=== PATIENT | male | born 1965 | race Asian ===

== ENCOUNTER 2021-05-16 13:48 | Emergency (ER) | payer OTHER, SELFPAY ==
[2021-05-16 14:00] VITALS: BP 119/76; PULSE 77; RESP 18; TEMP 36.7; O2SAT 98
--- NOTE | 2021-05-16 14:48 | ED.GENADULT ---
HPI - General Adult General Chief complaint: Headache Stated complaint: Headache,Nose Pain Source: patient Mode of arrival: ambulatory Limitations: no limitations History of Present Illness HPI narrative: Patient is a 55 y/o CM who presents to the via pov for an evaluation of a nose injury that occurred 6 weeks ago. He states his 50 lbs dog jumped up as he was bending over to pet him and his dog's head struck his nose causing pain, swelling, and generalized headache. His symptoms are improving although he is concerned with left sided nasal congestion that has not improved. He has a hx of a deviated septum and believe this may be the problem prompting today's visit. Ibuprofen provides some relief. Nothing worsens sx. Current pain level is 310 Related Data Home Medications Medication Instructions Recorded Confirmed fexofenadine 180 mg tablet 180 mg PO DAILY 07/17/19 06/05/20 fluticasone propionate 50 1 spray NASAL DAILY 07/17/19 06/05/20 mcg/actuation nasal spray,suspension Claritin 05/16/21 Allergies Allergy/AdvReac Type Severity Reaction Status Date / Time egg Allergy Mild Unknown Verified 06/05/20 09:33 CATS Allergy Mild Unknown Uncoded 06/05/20 09:33 Honey Bee Allergy Mild Unknown Uncoded 06/05/20 09:33 Grass Allergy Unknown RHINITIS, Uncoded 06/05/20 09:33 ITCHING flu shot Allergy Anaphylaxis Uncoded 05/16/21 14:33 Review of Systems Review of Systems: Pertinent negatives: fever, chills, sweats, change in appetite, poor p.o. intake, severe persistent headaches, dizziness, lymphadenopathy, epistaxis, bruising of eyes, vision changes, ear problems, erythema, weakness, syncope, vertigo, LOC, seizure activity, memory loss, difficulty with coordination/gait/equilibrium, paresthesias, abdominal pain, nausea, vomiting, diarrhea, constipation, shortness of breath, cough, chest pain, and heart palpitations/murmurs. [facility] Past Medical History Medical History Acute non-recurrent sinusitis (~06/03/17) Allergic rhinitis Bronchitis (~10/06/11) & 1994 Chronic neck pain (~04/10/19) Hyperlipidemia (~04/10/19) Internal hemorrhoid (~03/02/16) Lumbar strain (~06/14/00) Pain and numbness of left upper extremity (~04/24/19) physical therapy completed-[facility] Pre-diabetes (~04/10/19) Seasonal allergies (~04/10/19) Skin lesions (~04/10/19) 05/10/13-right upper arm from tick bite Strain of right elbow (~04/21/04) w/ loss of extension Tick bite (~05/10/13) Whiplash injury (~1999) Surgical History Surgical History History of oral surgery Hx of colonoscopy (~03/02/16) Dr. Munguia Family History Family History Grandparent Diabetes mellitus Social History Social History Smoking status: Current some day smoker Second hand tobacco smoke exposure: Yes Alcohol intake: current Drinks per week: 4 Substance use: never Substance use type: does not use Gender identity (if verbalized by the patient): Male Sexual Orientation (if Verbalized by the Patient): Straight or Heterosexual Spiritual care concerns: No Agree to blood products: Yes Comments I have reviewed and agree with the patient's past medical, surgical, social, and family hx as documented by the RN. There is no relevant family history pertinent to the presenting complaint. Exam Narrative: GENERAL: Well-appearing, well-nourished, and in no acute distress. HEAD: Normocephalic, atraumatic. No sinus tenderness or facial swelling appreciated. No evidence of ear bleeding or drainage from ears. No evidence of foreign bodies. No signs of basilar skull fracture: no hemotympanum, de guzman's sign, or raccoon's eyes. EYES: PERRLA and EOMI. No evidence of erythema, swelling, or drainage. ENT: Bilateral external ears
== END 2021-05-16 15:06 | disposition home or self-care (01) ==
PROVIDERS: Emergency Provider Nurse Practitioner Family; PCP Family Medicine
DX: R09.81 Nasal congestion (principal); S09.92XA Unspecified injury of nose, initial encounter; W54.1XXA Struck by dog, initial encounter; E78.5 Hyperlipidemia, unspecified; R73.03 Prediabetes; F17.200 Nicotine dependence, unspecified, uncomplicated
CPT/HCPCS: 99212; G0463

== ENCOUNTER 2021-08-08 10:00 | Emergency (ER) | payer OTHER, SELFPAY ==
[2021-08-08 10:07] VITALS: BP 114/82; PULSE 73; RESP 16; O2SAT 99
--- NOTE | 2021-08-08 10:40 | ED.LOWEXIN ---
HPI - Extremity Injury (Lower) General Chief Complaint: Extremity Injury, Lower Stated Complaint: Left ankle and foot pain Time Seen by Provider: 08/08/21 10:52 Source: patient and RN notes reviewed Mode of arrival: ambulatory Limitations: no limitations History of Present Illness HPI Narrative: 56-year-old male presents with concern for 10-day history of left ankle pain. He reports 10 days ago he tripped over a stick and hurt his ankle. Reports he since has had Achilles pain that radiates down toward the heel. Reports pain is worse in the morning and eases throughout the day as he walks. Reports pain is worse with walking downstairs. He denies swelling, redness, warmth, open skin. MD complaint: ankle injury Related Data Home Medications Medication Instructions Recorded Confirmed fexofenadine 180 mg tablet 180 mg PO DAILY 07/17/19 06/05/20 fluticasone propionate 50 1 spray NASAL DAILY 07/17/19 06/05/20 mcg/actuation nasal spray,suspension Claritin 05/16/21 Allergies Allergy/AdvReac Type Severity Reaction Status Date / Time egg Allergy Mild Unknown Verified 06/05/20 09:33 CATS Allergy Mild Unknown Uncoded 06/05/20 09:33 Honey Bee Allergy Mild Unknown Uncoded 06/05/20 09:33 Grass Allergy Unknown RHINITIS, Uncoded 06/05/20 09:33 ITCHING flu shot Allergy Anaphylaxis Uncoded 05/16/21 14:33 Review of Systems Review of Systems: CONSTITUTIONAL: Denies malaise, chills, sweats, or fever. SKIN: Denies rash or itching, open skin, laceration, abrasion, redness, warmth, swelling. MUSCULOSKELETAL: Reports left posterior ankle pain NEUROLOGIC: Denies numbness, weakness All systems reviewed & are unremarkable except as noted in HPI and below PMFSH Past Medical History Medical History Acute non-recurrent sinusitis (~06/03/17) Allergic rhinitis Bronchitis (~10/06/11) & 1994 Chronic neck pain (~04/10/19) Hyperlipidemia (~04/10/19) Internal hemorrhoid (~03/02/16) Lumbar strain (~06/14/00) Pain and numbness of left upper extremity (~04/24/19) physical therapy completed-[facility] Pre-diabetes (~04/10/19) Seasonal allergies (~04/10/19) Skin lesions (~04/10/19) 05/10/13-right upper arm from tick bite Strain of right elbow (~04/21/04) w/ loss of extension Tick bite (~05/10/13) Whiplash injury (~1999) Surgical History Surgical History History of oral surgery Hx of colonoscopy (~03/02/16) Dr. Munguia Family History Family History Grandparent Diabetes mellitus Social History Social History Smoking status: Current some day smoker Second hand tobacco smoke exposure: Yes Alcohol intake: current Drinks per week: 4 Substance use: never Substance use type: does not use Gender identity (if verbalized by the patient): Male Sexual Orientation (if Verbalized by the Patient): Straight or Heterosexual Spiritual care concerns: No Agree to blood products: Yes Comments At time of signature, agree with nursing past medical, surgical, social and family history. There is no relevant family history pertinent to the presenting complaint Exam Narrative: GENERAL: Well-appearing, well-nourished, and in no acute distress. HEAD: Normocephalic, atraumatic. EYES: PERRLA, conjunctivae clear NECK: Supple. CHEST: Speaks in full sentences. No respiratory distress. HEART: Regular rate and rhythm. Normal and equal peripheral pulses. EXTREMITIES: Left ankle has normal strength and sensation, normal range of motion. No edema or ecchymosis. 5/5 strength with ankle and digit flexion and extension. Normal sensation with sensitivity to light touch and pain. No point tenderness. No open wounds, no skin tenting, no devitalized tissue or atrophy, no trophic changes, no obvious deformity, alignment nor
== END 2021-08-08 11:05 | disposition home or self-care (01) ==
PROVIDERS: Emergency Provider Nurse Practitioner; PCP Family Medicine
DX: M77.52 Other enthesopathy of left foot and ankle (principal); F17.200 Nicotine dependence, unspecified, uncomplicated; E78.5 Hyperlipidemia, unspecified; R73.03 Prediabetes
CPT/HCPCS: 99213; G0463

== ENCOUNTER 2022-02-12 00:20 | Day surgery (SDC) | payer OTHER, SELFPAY ==
[2022-02-06 12:08] VITALS: BMI 22.2
--- NOTE | 2022-02-06 12:20 | PC.NURSE ---
Report to the Outpatient Waiting Room, entrance under the green pavilion located off [facility], at time 1000 on date 02/12/22. OR Time: 1200. - You and your visitor will be asked a series of questions to screen for COVID 19 for your protection. - Only one visitor is allowed at this time. - The patient visitor is requested to leave or wait in car when not with patient. - A mask is required within the hospital. Patients may have clear liquids (water, carbonated beverages, clear teas, apple juice) until 3 hours prior to surgery with a maximum of 20 ounces. - No food from midnight until time of surgery Take the following medications with a SIP of water the morning of surgery: NONE Medications to discontinue per physician: N/A Date to take last dose: N/A Please no make-up, nail montserratian, hairspray, perfume, deodorant, or body powder the day of surgery. No jewelry (including any body piercings) or valuables the day of surgery, leave them at home. Please take a shower or bath the night before, or the morning of, surgery with an antibacterial soap. Wear comfortable, loose fitting clothing. - Jewelry must be removed prior to entering the operating room. Rings and piercings that are not removed may be cut off. - The hospital will not accept responsibility for valuables. - Please leave all valuables, including medications, at home the day of surgery. If you are going home after surgery, a licensed truss driver helper must drive you home. - NO public transportation without another adult. - We recommend that an adult stay with you for 24 hours following discharge. - We also recommend that you do not drive, make important decision, drink alcoholic beverages, or take any drugs that were not prescribed by your health care provider for at least 24 hours after your discharge time. Follow any additional instructions given to you from your surgeon. If you or anyone in your household have experienced Covid symptoms in the past week, please notify your surgeon or the nurse liaison at the phone number below for possible testing. Telephone instructions given to PT - ROCCO EWING and asked if any additional questions and then verbalized understanding. Patient advised to call surgeon office or pre surgery nurse liaison [phone] if any additional questions.
[2022-02-12] VITALS (10 sets, daily range): BP systolic 88–127; BP diastolic 62–87; PULSE 52–70; RESP 12–20; TEMP 36.1–37; O2SAT 98–100
--- NOTE | 2022-02-12 08:23 | PM.IMHP ---
H&P: HPI History of Present Illness Date/Time: 02/12/22 08:23 Chief Complaint: external hemorrhoids Narrative: Mr Lott has been seen multiple times in the office for examination of external hemorrhoids and skin tags. He reports that since his last office visit he has been using the Anusol cream to help with his flare ups and this really seems to help. He also reports he has been doing sitz baths with Epsom salts 2-3 times a day. He reports overall he is marginally better but would like to move forward with surgical treatment. Review of Systems Review of Systems: All systems reviewed & are unremarkable except as noted in HPI and below PMFSH Past Medical History Medical History Acute non-recurrent sinusitis (~06/03/17) Allergic rhinitis Bronchitis (~10/06/11) & 1994 Chronic neck pain (~04/10/19) Hyperlipidemia (~04/10/19) Internal hemorrhoid (~03/02/16) Lumbar strain (~06/14/00) Pain and numbness of left upper extremity (~04/24/19) physical therapy completed-[facility] Pre-diabetes (~04/10/19) Seasonal allergies (~04/10/19) Skin lesions (~04/10/19) 05/10/13-right upper arm from tick bite Strain of right elbow (~04/21/04) w/ loss of extension Tick bite (~05/10/13) Tobacco abuse Whiplash injury (~1999) Surgical History Surgical History History of oral surgery Hx of colonoscopy (~03/02/16) Dr. Munguia Family History Family History Grandparent Diabetes mellitus Father Diabetes mellitus Social History Social History Years smoked: 10 Smoking status: Current every day smoker Tobacco type: cigarettes Second hand tobacco smoke exposure: Yes Alcohol intake: current Drinks per week: 7 Substance use: never Substance use type: does not use Living arrangements: with family Gender identity (if verbalized by the patient): Male Sexual Orientation (if Verbalized by the Patient): Straight or Heterosexual Spiritual care concerns: No Agree to blood products: Yes Meds Home Medications and Allergies Home Medications Medication Instructions Recorded Confirmed Type fluticasone propionate 50 1 spray intranasal DAILY 07/17/19 02/06/22 History mcg/actuation nasal spray,suspension (Allergy Relief (fluticasone)) hydrocortisone 2.5 % topical cream 1 applic RECTAL DAILY PRN 11/11/21 02/06/22 Rx with perineal applicator hemorrhoids #30 grams (Anusol-HC) atorvastatin 10 mg tablet 10 mg PO DAILY #90 tabs 12/19/21 02/06/22 Rx ibuprofen 200 mg tablet 400 mg PO Q6H PRN Pain 02/06/22 02/06/22 History loratadine 10 mg tablet (Claritin) 10 mg PO DAILY 02/06/22 02/06/22 History Allergies Allergy/AdvReac Type Severity Reaction Status Date / Time egg Allergy Mild Anaphylaxis Verified 02/06/22 12:06 CATS Allergy Mild Anaphylaxis Uncoded 02/06/22 12:06 Grass Allergy Unknown RHINITIS, Uncoded 02/06/22 12:06 ITCHING flu shot Allergy Anaphylaxis Uncoded 02/06/22 12:06 Exam Const: General: cooperative, comfortable and no acute distress Nutritional Appearance: average body habitus Orientation/consciousness: patient oriented x3 Resp: Auscultation: clear to auscultation bilaterally Cardio: Rate: regular rate Rhythm: regular rhythm GI: Inspection: normal to inspection GI Palp: No abdominal tenderness, Yes Soft to palpation, No Tenderness to palpation present (GI) and No Guarding due to palpation present (GI) Assessment and Plan Assessment and plan (1) External hemorrhoid: Code(s): K64.4 - Residual hemorrhoidal skin tags Status: Acute Assessment and Plan: marginal improvement c conservative treatment, will plan for EUA, hemorrhoidectomy in OR
--- NOTE | 2022-02-12 09:29 | WPDANESEPPF ---
Anes - Initial Pre Proc Eval Procedure: Operation Date: 02/12/22 07:30 Proposed Procedures p Rectal Examination Under Anesthesia, Hemorrhoidectomy - Janette Rosa MD Date/Time: 02/12/22 09:29 Surgeon: Janette Rosa MD Pre Op Diagnosis: external hemorrhoids, anal skin tag Patient Data Age: 56 Gender: M Height: 1.78 m Weight: 70.31 kg Allergies Allergy/AdvReac Type Severity Reaction Status Date / Time egg Allergy Severe Anaphylaxis Verified 02/12/22 09:24 CATS Allergy Severe Anaphylaxis Uncoded 02/12/22 09:24 flu shot Allergy Severe Anaphylaxis Uncoded 02/12/22 09:24 Grass Allergy Mild RHINITIS, Uncoded 02/12/22 09:24 ITCHING Home Medications Medication Instructions Recorded Confirmed Type fluticasone propionate 50 1 spray intranasal DAILY 07/17/19 02/12/22 History mcg/actuation nasal spray,suspension (Allergy Relief (fluticasone)) hydrocortisone 2.5 % topical cream 1 applic RECTAL DAILY PRN 11/11/21 02/12/22 Rx with perineal applicator hemorrhoids #30 grams (Anusol-HC) atorvastatin 10 mg tablet 10 mg PO DAILY #90 tabs 12/19/21 02/12/22 Rx ibuprofen 200 mg tablet 400 mg PO Q6H PRN Pain 02/06/22 02/12/22 History loratadine 10 mg tablet (Claritin) 10 mg PO DAILY 02/06/22 02/12/22 History Patient hx anesthesia problems: none Family hx anesthesia problems: none Results Review: All pre-operative results and documents have been reviewed as part of the pre-operative evaluation. [facility] Past Medical History Medical History Acute non-recurrent sinusitis (~06/03/17) Allergic rhinitis Bronchitis (~10/06/11) & 1993 Chronic neck pain (~04/10/19) Hyperlipidemia (~04/10/19) Internal hemorrhoid (~03/02/16) Lumbar strain (~06/14/00) Pain and numbness of left upper extremity (~04/24/19) physical therapy completed-[facility] Pre-diabetes (~04/10/19) Seasonal allergies (~04/10/19) Skin lesions (~04/10/19) 05/10/13-right upper arm from tick bite Strain of right elbow (~04/21/04) w/ loss of extension Tick bite (~05/10/13) Tobacco abuse Whiplash injury (~1999) Surgical History Surgical History History of oral surgery Hx of colonoscopy (~03/02/16) Dr. Munguia Family History Family History Grandparent Diabetes mellitus Father Diabetes mellitus Social History Social History Years smoked: 10 Smoking status: Current every day smoker Tobacco type: cigarettes Second hand tobacco smoke exposure: Yes Alcohol intake: current Drinks per week: 7 Substance use: never Substance use type: does not use Living arrangements: with family Gender identity (if verbalized by the patient): Male Sexual Orientation (if Verbalized by the Patient): Straight or Heterosexual Spiritual care concerns: No Agree to blood products: Yes Anes - Eval Final PreProcedure Day of Procedure 02/12/22 09:29 Patient weight: normal Heart: regular rate and rhythm Lungs: clear to auscultation Airway: Mallampati scale class II Neurological: alert and oriented Last oral intake: >/= 8 hours ASA classification: II Emergent: no Anesthetic plan: proceed Anesthesia type and monitoring: general LMA and standard monitoring Results Review: All pre-operative results and documents have been reviewed as part of the pre-operative evaluation. Informed Consent: The patient's anesthetic plan and its attendant risks and benefits were discussed with the patient/family/POA. Questions were solicited and answers provided to the satisfaction of the patient/family/POA.
[2022-02-12] MEDS: LACTATED RINGERS 1,000 ML 30 ML IV CONT (09:35)
[2022-02-12] MEDS: ACETAMINOPHEN 500 MG TABLET 1000 MG PO (09:35)
[2022-02-12] MEDS: KETOROLAC 15 MG/ML VIAL (*BKC) IV PUSH (09:42)
--- NOTE | 2022-02-12 09:55 | WPDHPUPDATE1 ---
History and Physical Update Update Date/Time: 02/12/22 09:55 History and Physical has been reviewed, including an updated exam of the patient. There are NO changes in the patient's condition. Risks, benefits, and alternatives have been discussed and questions answered. Patient agrees to proceed with procedure.
[2022-02-12] MEDS: ceFAZolin 2 GM/D5W 50 ML 2 GM/50 ML BAG IVPB (10:11)
[2022-02-12] MEDS: LIDOCAINE HCL 1% PF 30 ML VIAL INFILTRATE (10:24)
[2022-02-12] MEDS: LIDOCAINE HCL 2% GEL UROJET 10 ML PKG MUCOUS MEM (10:32)
[2022-02-12] MEDS: GELATIN SPONGE SZ 100 1 EACH TOPICAL (10:32)
--- NOTE | 2022-02-12 10:35 | P.OP_ITS ---
Procedure Note - Detailed Date of Procedure 02/12/22 Pre-op Diagnosis external hemorrhoids, anal skin tag Post-op Diagnosis Same Procedure Performed Exam under anesthesia, external hemorrhoidectomy involving left lateral and right anterior positions Surgeon Janette Rosa MD Anesthesia General Indications 56 y/o M c multiple external hemorrhoids c frequent flares causing pain, bleeding refractory to conservative measures. Findings multiple external hemorrhoids predominately in L lateral and R anterior Description of Procedure The patient was taken to the operating room and placed in the modified lithotomy position. After adequate induction of general anesthesia, the patient was prepped and draped in the normal sterile fashion. A time-out was then done to verify the patient's identity, as well as the procedure being performed. I began by doing a digital rectal exam. There was noted to be multiple external hemorrhoids, however no internal hemorrhoids were noted. At this point, a bilateral pudendal block was done. Then used the [place] retractor to further evaluate the anal canal as well as rectum, other than external hemorrhoids no other pathology was noted. I then began excising the external hemorrhoids using the hand-held LigaSure device. The hemorrhoids were noted to be in the left lateral and right anterior positions. Multiple hemorrhoids were excised using the LigaSure. The specimens will be sent to pathology for further review. Hemostasis was noted at all excision sites. I then placed a piece of Gelfoam covered with lidocaine jelly into the rectal vault. The patient tolerated the procedure and was extubated in the operating room postop. He will be transferred to the recovery room in stable condition. Implants Gelfoam covered with lidocaine jelly in the rectal vault Estimated Blood Loss 5 Drains No Packing Yes Pathology Yes Complications No immediate complications Condition Stable Disposition PACU [facility] Billing Surgery - Charge Forward: Surgery Billing
== END 2022-02-12 12:24 | disposition home or self-care (01) ==
PROVIDERS: PCP Family Medicine; Visit Provider Surgery
PROC: (CPT 46250; principal; 2022-02-12 07:30)
DX: K64.4 Residual hemorrhoidal skin tags (principal); E78.5 Hyperlipidemia, unspecified; R73.03 Prediabetes; F17.210 Nicotine dependence, cigarettes, uncomplicated
CPT/HCPCS: 46250; 88304; A9270; J0690; J1100; J1885; J2250; J2405; J2704; J3010; J7120

== ENCOUNTER 2024-01-07 08:33 | Emergency (ER) | payer OTHER, SELFPAY ==
[2024-01-07 08:45] VITALS: BP 123/81; PULSE 67; RESP 16; TEMP 36.8; O2SAT 100
[2024-01-07] MEDS: TETRACAINE HCL 0.5% OPHTH SOLN 4 ML BTL 1 DROP LEFT EYE (08:56)
[2024-01-07] MEDS: FLUORESCEIN SOD 1 MG/STRIP LEFT EYE (08:57)
[2024-01-07] MEDS: DACRIOSE EYE IRRIGATION 118 ML BOTTLE 10 ML LEFT EYE (08:57)
--- NOTE | 2024-01-07 09:15 | ED.EYEPROB ---
HPI - Eye Problem General Chief complaint: Eye Problems Stated complaint: left eye issue Time Seen by Provider: 01/07/24 08:51 Source: patient and RN notes reviewed Mode of arrival: ambulatory Limitations: no limitations History of Present Illness HPI Narrative: Patient presents today complaining of foreign body sensation to the left eye when he woke up this morning. He did attempt to flush the eye without relief symptoms. States symptoms were not present when he went to sleep last night. Denies vision changes or drainage. Patient does wear glasses. Related Data Home Medications Medication Instructions Recorded Confirmed fluticasone propionate 50 1 spray intranasal DAILY 07/17/19 01/07/24 mcg/actuation nasal spray,suspension (Allergy Relief (fluticasone)) ibuprofen 200 mg tablet 400 mg PO Q6H PRN Pain 02/06/22 01/07/24 loratadine 10 mg tablet (Claritin) 10 mg PO DAILY 02/06/22 01/07/24 Allergies Allergy/AdvReac Type Severity Reaction Status Date / Time egg Allergy Severe Anaphylaxis Verified 01/07/24 08:47 Influenza Virus Vaccines Allergy Severe Anaphylaxis Verified 01/07/24 08:47 CATS Allergy Severe Anaphylaxis Uncoded 01/07/24 08:47 Grass Allergy Mild RHINITIS, Uncoded 01/07/24 08:47 ITCHING Review of Systems Review of Systems: CONSTITUTIONAL: Denies body aches, fever, chills, or sweats. EYES: Denies visual changes, redness, or discharge.+ left eye foreign body sensation ENT: Denies rhinorrhea, congestion, sore throat, or otalgia. CARDIOVASCULAR: Denies chest pain, palpitations, or edema. RESPIRATORY: Denies cough or dyspnea. GASTROINTESTINAL: Denies abdominal pain, nausea, vomiting, or diarrhea. GENITOURINARY: Denies dysuria or hematuria. SKIN: Denies rash, itching, or wounds. MUSCULOSKELETAL: Denies back pain, joint pain, or myalgia. NEUROLOGIC: Denies headache, numbness, tingling, or weakness. PSYCH: Denies depression or anxiety. [facility] Past Medical History Medical History Acute non-recurrent sinusitis (~06/03/17) Allergic rhinitis Bronchitis (~10/06/11) & 1994 Chronic neck pain (~04/10/19) Hyperlipidemia (~04/10/19) Internal hemorrhoid (~03/02/16) Lumbar strain (~06/14/00) Pain and numbness of left upper extremity (~04/24/19) physical therapy completed-[facility] Pre-diabetes (~04/10/19) Seasonal allergies (~04/10/19) Skin lesions (~04/10/19) 05/10/13-right upper arm from tick bite Strain of right elbow (~04/21/04) w/ loss of extension Tick bite (~05/10/13) Tobacco abuse Whiplash injury (~1999) Surgical History Surgical History H/O hemorrhoidectomy Exam under anesthesia, external hemorrhoidectomy involving left lateral and right anterior positions 02/12/22 History of oral surgery Hx of colonoscopy (~03/02/16) Dr. Munguia Family History Family History Grandparent Diabetes mellitus Father Diabetes mellitus Social History Social History Years smoked: 10 Smoking status: Former smoker (Quit 3 years ago. Smoked 2-3 cigarettes for 18 years. ) Tobacco type: cigarettes Second hand tobacco smoke exposure: No Alcohol intake: current Drinks per week: 7 Substance use: never Substance use type: does not use Lack of Transportation: No Lack of Food: Never True Current Housing: I Have Housing Concerned About Future Housing: No Difficulty Paying Gas/Electric Bills: No Difficulty Paying for Meds: No Currently Unemployed: No Education: Master's Degree or Higher Difficulty w/ Childcare or Family Care: No Living arrangements: with family Occupation/Education: occupation Gender identity (if verbalized by the patient): Male Sexual Orientation (if Verbalized by the Patient): Straight or Heterosexual Spiritual c
== END 2024-01-07 09:26 | disposition home or self-care (01) ==
PROVIDERS: Emergency Provider Nurse Practitioner; PCP Family Medicine
DX: S05.02XA Injury of conjunctiva and corneal abrasion without foreign body, left eye, initial encounter (principal); X58.XXXA Exposure to other specified factors, initial encounter; E78.5 Hyperlipidemia, unspecified; R73.03 Prediabetes
CPT/HCPCS: 99213; A9270; G0463

== ENCOUNTER 2025-04-02 07:49 | Outpatient (CLI) | payer OTHER, SELFPAY ==
--- NOTE | ~2025-04-02 | PE_ITS ---
EXAMINATION: PET_PETPSMAST_PT DATE: 04/02/2025 12:14 INDICATION: Prostate cancer TECHNIQUE: 4.701 mCi of Illucix [id number]) was administered i.v. Low dose computed tomography (CT) images were acquired from the base of the brain to the base of the brain to the proximal thighs for attenuation correction and anatomic localization. Positron emission tomography (PET) images were acquired in the same distribution beginning 77 minutes after injection. Images including fused PET/CT images were reconstructed in axial, coronal, and sagittal planes. Automated exposure control technique was employed. The dose-length product was 795.75mGy-cm. COMPARISON: None FINDINGS: Head/neck: Typical pattern of symmetric physiologic increased activity in the lacrimal, parotid and submandibular glands as well as along the mucosa of the nasal and oral cavities, pharynx and hypopharynx. No pathologically enlarged cervical lymphadenopathy or suspicious foci of increased uptake in the visualized head or neck. Chest: Mild dependent atelectasis in both lungs. Calcified left lower lobe nodule and calcified left hilar and mediastinal lymph nodes consistent with old granulomatous disease. No other suspicious pulmonary nodules, pneumonia, pulmonary edema or pleural effusion. Heart size is normal. No pericardial effusion. Thoracic aorta is normal in caliber. No pathologically enlarged or PSMA avid thoracic lymphadenopathy. Abdomen/pelvis/proximal thighs: Physiologic renal accumulation and excretion of activity in the kidneys, bladder and along portions of ureters. Mildly enlarged prostate measuring 4.3 x 3.2 cm with 2 regions of increased uptake in the posterior prostate with maximal SUV of 5.6 on the left and 17.6 on the right. Normal degree and slightly heterogenous pattern of increased uptake throughout the liver and spleen without radiologic correlate or dominant PSMA avid lesion. The gallbladder, pancreas and bilateral adrenal glands are normal. Moderate uptake scattered throughout the bowels with typical duodenal and proximal jejunal predominance and without radiologic correlate, also likely physiologic. Normal appendix. No other abnormal foci of increased uptake or pathologically enlarged lymphadenopathy in the abdomen, pelvis or proximal thighs. Musculoskeletal: No suspicious lytic, blastic or abnormally PSMA avid bone lesions. IMPRESSION: 1. Regions of increased activity in the posterior aspect of the mildly enlarged prostate particularly on the right consistent with primary prostate cancer. No evident metastatic disease. Reviewed, dictated and finalized at location A.
== END 2025-04-02 07:50 | disposition home or self-care (01) ==
PROVIDERS: PCP Family Medicine; Visit Provider Urology
DX: C61 Malignant neoplasm of prostate (principal)
CPT/HCPCS: 78815; A9596